=== PATIENT | male | born 1955 | race Caucasian/White ===

== ENCOUNTER 2018-11-13 11:38 | Emergency (ER) | payer OTHER ==
[~2018-11-13] VITALS: Ht 175.3 cm; Wt 72.6 kg
[~2018-11-13 11:38] MED LIST: CIPRO500 MG PO; FLAGYL500MG PO; INTESTINEX1 CA1 PO; ZANTAC150 MG PO
[2018-11-13] MEDS ORDERED: TOPROL XL50 M1 PO (12:55)
[2018-11-13] MEDS ORDERED: PRILOSEC OTC20 MG PO (12:56)
== END 2018-11-13 19:10 | disposition home or self-care (01) ==
LOC: ER 11:38
DX: K58.9 Irritable bowel syndrome, unspecified (principal)